=== PATIENT | male | born 1950 | race Caucasian/White ===

== ENCOUNTER → 2019-01-06 | Outpatient (CLI) | payer MEDICARE ==
[2019-01-06 12:23] LABS: HGB 15.6 gm/dL (13.0-17.5); MCH 32.9 pg (25.0-35.0); MCHC 34.7 g/dL (31.0-37.0); MCV 94.8 fL (80.0-100.0); Mean Platelet Volume 6.1; Platelet Count 191 k/uL (150-450); RBC 4.74 m/uL (4.30-5.90); RDW 12.6 % (11.5-15.5); WBC 7.5 k/uL (3.8-10.6)
[2019-01-06 12:41] LABS: African American GFR (CKD) >90 (>60 ml/min/1.73 sqM); Anion Gap 9 mmol/L; Blood Urea Nitrogen 9 mg/dL (9-20); Carbon Dioxide 27 mmol/L (22-30); Chloride 106 mmol/L (98-107); Potassium 4.8 mmol/L (3.5-5.1); Sodium 142 mmol/L (137-145)
== END ==
LOC: LABPAT 11:33
PROVIDERS: ATTEND Internal Medicine Interventional Cardiology
DX: Z01.812 Encounter for preprocedural laboratory examination (principal)
CPT/HCPCS: 36415; 80051; 82565; 84520; 85027

== ENCOUNTER 2019-01-12 06:14 | Day surgery (SDC) | payer MEDICARE ==
[2019-01-10 09:13] VITALS: BMI 26.9
[2019-01-12] MEDS ORDERED: NITROGLYCERIN SL TABS 0.4 MG TAB SUBLINGUAL PRN (06:24)
[2019-01-12] MEDS ORDERED: ASPIRIN 325 MG TAB PO STA (06:24)
[2019-01-12] MEDS ORDERED: ALPRAZolam 0.25 MG TAB PO PRN (06:24)
[2019-01-12] MEDS ORDERED: ALPRAZolam 0.5 MG TAB PO PRN (06:24)
[2019-01-12] MEDS ORDERED: SODIUM CHLORIDE 0.9% 1,000 ML in EMPTY BAG 1 BAG IV ONE (06:24)
[2019-01-12] MEDS ORDERED: ATORVASTATIN 80 MG TAB PO STA (06:24)
[2019-01-12 07:18] VITALS: RESP 16; TEMP 98.3
[2019-01-12] MEDS ORDERED: SODIUM CHLORIDE 0.9% 1,000 ML IV ONE ×3 (07:26)
[2019-01-12] MEDS ORDERED: fentaNYL (PF) 50 MCG/ML 2 ML AMP IVP ONE (07:35)
[2019-01-12] MEDS ORDERED: LIDOCAINE 1% INJ 10MG/ML (20 ML MDV) SQ ONE (07:38)
[2019-01-12] MEDS ORDERED: IOPAMIDOL-370 125ML BTL INJ ONE (07:52)
[2019-01-12] MEDS ORDERED: RX INFO: IV CONTRAST WAS GIVEN 1 EACH MISC MISCELLANE PRN (08:03)
[2019-01-12] MEDS ORDERED: SODIUM CHLORIDE 0.9% 1,000 ML IV SCH (08:15)
[2019-01-12] MEDS ORDERED: fentaNYL (PF) 50 MCG/ML 2 ML AMP ONE (08:23)
--- NOTE | 2019-01-12 10:04 | CC ---
CARDIAC CATHETERIZATION REPORT Mr. Zapien is a 68-year-old male with a known history of hypertension, hyperlipidemia, history of coronary artery disease, status post coronary artery bypass grafting and mitral valve repair and chronic persistent atrial fibrillation, who presented with symptoms of dyspnea and fatigue and had an abnormal myocardial perfusion imaging. In view of that, recommendation was made regarding cardiac catheterization. The procedure as well as the risks and the complications were discussed with the patient who is in full understanding and agreement. PROCEDURE: Patient was brought to laboratory machinist in a fasting semi-sedated state after receiving fentanyl and Benadryl and achieving moderate conscious sedated state. Using Xylocaine anesthesia in the Seldinger technique, a 6-Trinidadian sheath was introduced in the right femoral artery. Selective right and left coronary angiography performed using 6-Trinidadian 4 bend right and left Oleg catheter. Multiple views of the coronary artery including hemiaxial views obtained. Following that the 6-Trinidadian right Oleg catheter was used to cannulate the saphenous vein graft to the obtuse marginal branch, to the right coronary artery and the MARCH to LAD. Images of the grafts were obtained. Following that, a 6-Trinidadian tight pigtail catheter was introduced in the left ventricle and pressures were calculated. Following that, catheter and sheath were removed. Hemostasis was obtained with compression of the right groin. There was no immediate complication. Patient was returned to his room in stable condition. There was no immediate complication. FINDINGS: FLUOROSCOPY: There was calcification involving the coronary arteries. LEFT MAIN: This is a short-size vessel bifurcating in left circumflex, left anterior descending artery. Left main coronary artery has no evidence of high-grade stenosis. LEFT ANTERIOR DESCENDING ARTERY: This vessel is totally occluded proximally with no antegrade flow. LEFT CIRCUMFLEX: This is a calcified vessel, nondominant, has a 70% stenosis proximally giving rise to a first obtuse marginal branch. The second obtuse marginal branch is totally occluded. The AV groove of left circumflex has no evidence of high-grade stenosis. RIGHT CORONARY ARTERY: This vessel is dominant, large in caliber, heavily calcified throughout its course has significant disease in the proximal segment of 70% to 80%. In the mid segment, there is another plaque of 80% to 90%. The distal vessel is diffusely diseased. There is retrograde flow into the saphenous vein graft. SAPHENOUS VEIN GRAFT TO THE LEFT CIRCUMFLEX: The proximal distal anastomotic sites are patent. The flow into the obtuse marginal branch is brisk. There is retrograde flow into the second obtuse marginal branch that appears to be diffusely diseased. SAPHENOUS VEIN GRAFT TO THE RIGHT CORONARY ARTERY: This graft is large in caliber. The proximal distal anastomotic sites are patent. In the distal segment of the body of the graft, there is a 30% plaque. The flow into the PDA and PLV are brisk. There is retrograde flow into the [place] left circumflex. MARCH TO LAD: The distal anastomotic site is patent. The flow into the LAD is brisk. There is no evidence of high-grade stenosis. LEFT VENTRICULOGRAM: Left ventriculogram was not performed. HEMODYNAMICS: There was no gradient across the aortic valve. The left ventricle end-diastolic pressure was 12 to 14 mmHg. CONCLUSION: 1. Severe triple-vessel coronary artery disease. 2. Patent MARCH to LAD. 3. Patent saphenous vein graft to the obtuse marginal branch. 4. Patent saphenous vein graft to the right coronary artery. RECOMMENDATION: At this time I will maximize medical therapy and depending on his progress, further recommendation will be made. Those findings and recommendation were discussed with the patient and his family who are in full understanding and agreement. Duration of procedure is 19 minutes. MMODL / IJN: [id number] /
[2019-01-12 14:19] VITALS: BP 113/67; PULSE 69
[2019-01-12] MEDS ORDERED: clonazePAM 1 MG TAB PO SCH (21:00)
[2019-01-12] MEDS ORDERED: ATORVASTATIN 20 MG TAB PO SCH (21:00)
[2019-01-12] MEDS ORDERED: ATENOLOL 50 MG TAB PO SCH (21:00)
[2019-01-13] MEDS ORDERED: PANTOPRAZOLE 40 MG TABLET PO SCH (07:30)
== END 2019-01-12 14:38 | disposition home or self-care (01) ==
LOC: CATHCVL 06:14
PROVIDERS: ATTEND Internal Medicine Interventional Cardiology
DX: I25.10 Atherosclerotic heart disease of native coronary artery without angina pectoris (principal); I25.84 Coronary atherosclerosis due to calcified coronary lesion; I25.82 Chronic total occlusion of coronary artery; I10 Essential (primary) hypertension; E78.2 Mixed hyperlipidemia; Z79.01 Long term (current) use of anticoagulants; I48.20 Chronic atrial fibrillation, unspecified; Z98.890 Other specified postprocedural states; Z95.1 Presence of aortocoronary bypass graft; Z79.82 Long term (current) use of aspirin; Z79.899 Other long term (current) drug therapy
CPT/HCPCS: 93459; C1894; C1769; J2001; J3010; Q9967

== ENCOUNTER → 2019-02-13 | Outpatient (CLI) | payer MEDICARE ==
[2019-02-14 06:49] LABS: African American GFR (CKD) 99.9 (60.0-200.0); Albumin 4.8 g/dL (3.80-4.90); Albumin/Globulin Ratio 2.67 (1.60-3.17); Anion Gap 16.7 mmol/L (4.00-12.00); BUN/Creat Ratio 13.33 Ratio (12.00-20.00); Calcium 9.9 mg/dL (8.7-10.3); Carbon Dioxide 18.3 mmol/L (21.6-31.8); Globulin 1.8 g/dL (1.6-3.3); Non-African American GFR(CKD) 86.2 (60.0-200.0); Potassium 4.2 mmol/L (3.5-5.5); Total Bilirubin 0.9 mg/dL (0.2-1.2); Total Protein 6.6 g/dL (6.2-8.2)
== END | disposition home or self-care (01) ==
LOC: LABWHC1 16:35
PROVIDERS: ATTEND Internal Medicine Interventional Cardiology
DX: I10 Essential (primary) hypertension (principal)
CPT/HCPCS: 36415; 80053